=== PATIENT | male | born 1950 | race Caucasian/White ===

== ENCOUNTER 2022-02-14 11:18 | Inpatient (IN) | payer MEDICARE ==
[~2022-02-14] VITALS: Ht 172.7 cm; Wt 124.3 kg
[2022-02-14 11:29] VITALS: BP 116/88
[2022-02-14] MEDS ORDERED: SERTRALINE HYDR50 MG PO (11:43)
[2022-02-14] MEDS ORDERED: NEURONTIN300 MG PO (11:44)
[2022-02-14 11:58] LABS: BASO % 0.6 % (0.0-1.0); EOS # 0.1 10*3/uL (0.0-0.4); EOS % 2.1 % (1.0-4.0); HEMATOCRIT 44.8 % (42.0-52.0); LYMPH % 20.3 % (27.0-41.0); MEAN CORPUSCULAR HGB 30.9 pg (27.0-31.0); MEAN CORPUSCULAR HGB CONC 34.4 g/dl (33.0-37.0); MEAN PLATELET VOLUME 10.3 fl (9.6-12.3); MONO # 0.4 10*3/uL (0.1-1.0); MONO % 7.8 % (3.0-9.0); NEUT # 3.3 10*3/uL (2.3-7.9); PLATELET COUNT AUTOMATED 204 10*3/uL (130-400); RED BLOOD COUNT 4.98 10*6/uL (4.50-5.90); RED CELL DISTRI WIDTH 12.7 % (0-14.5); WHITE BLOOD COUNT 4.7 10*3/uL (4.8-10.8)
[2022-02-14 12:09] LABS: ACT PARTIAL THROMBO TIME 28.2 SECONDS (20.0-32.1)
[2022-02-14 12:12] LABS: ALKALINE PHOSPHATASE 93 U/L (45-117); BUN 15 mg/dl (7-24); CHLORIDE 110 mmol/L (98-107); CREATININE 0.92 mg/dL (0.70-1.30); SGOT/AST 19 IU/L (3-35); SGPT/ALT 25 U/L (12-78); SODIUM 139 mmol/L (136-145); TOTAL PROTEIN 7.6 gm/dL (6.4-8.2)
[2022-02-14 12:13] LABS: ETHYL ALCOHOL < 3.0 mg/dl (<3)
[2022-02-14 13:11] LABS: BILIRUBIN Negative (Negative); BLOOD Negative (Negative); CLARITY Turbid (Clear); COLOR Yellow (Yellow); GLUCOSE Negative (Negative); KETONE Negative (Negative); LEUKO ESTERASE Negative (Negative); NITRITE Negative (Negative); SPECIFIC GRAVITY 1.025 (1.001-1.030)
[2022-02-14 13:24] LABS: URINE AMPHETAMINES < 1000 (1000ng/ml); URINE BARBITURATES < 200 (200ng/ml); URINE BENZODIAZEPINES < 200 (200ng/ml); URINE CANNABINOIDS (THC) < 50 (50ng/ml); URINE COCAINE < 300 (300ng/ml); URINE METHADONE < 300 (300ng/ml); URINE OPIATES < 300 (300ng/ml)
[2022-02-14 13:33] LABS: URINE PHENCYCLIDINE < 25 (25ng/ml)
[2022-02-14 13:35] VITALS: BP 139/64
[2022-02-14 16:00] VITALS: BP 151/86
[2022-02-14 20:00] VITALS: BP 119/57
[2022-02-15] VITALS: BP 139/66
[2022-02-15 08:00] VITALS: BP 134/76
[2022-02-15 12:00] VITALS: BP 120/64
[2022-02-15 16:00] VITALS: BP 116/50
[2022-02-15 21:52] VITALS: BP 125/54
[2022-02-16] VITALS: BP 100/66
[2022-02-16 08:00] VITALS: BP 131/69
[2022-02-16 12:00] VITALS: BP 136/72
[2022-02-16 16:00] VITALS: BP 115/66
[2022-02-16 20:00] VITALS: BP 150/64
[2022-02-17] VITALS: BP 133/72
[2022-02-17 08:00] VITALS: BP 113/59
[2022-02-17] MEDS ORDERED: VITAMIN B-1100 M1 PO (09:01)
[2022-02-17] MEDS ORDERED: THERA TABLET400 MCG PO (09:01)
[2022-02-17] MEDS ORDERED: NATURE'S BLEND F1 MG PO (09:01)
== END 2022-02-17 09:35 | disposition home or self-care (01) | DRG 897 ==
LOC: ED 11:18 → 4E 13:00 → EDHOLD 13:00 → 4E 13:00
PROVIDERS: Emergency Medicine; ADMIT Family Medicine; ATTEND Family Medicine
DX: F11.13 Opioid abuse with withdrawal (principal); Z68.41 Body mass index [BMI] 40.0-44.9, adult; F41.9 Anxiety disorder, unspecified; M54.30 Sciatica, unspecified side; E83.41 Hypermagnesemia; F32.9 Major depressive disorder, single episode, unspecified; G47.00 Insomnia, unspecified; F32.A Depression, unspecified; G89.29 Other chronic pain; M54.9 Dorsalgia, unspecified; D72.819 Decreased white blood cell count, unspecified; R73.9 Hyperglycemia, unspecified; E66.01 Morbid (severe) obesity due to excess calories; E87.8 Other disorders of electrolyte and fluid balance, not elsewhere classified; Z88.6 Allergy status to analgesic agent; Z88.8 Allergy status to other drugs, medicaments and biological substances; Z87.891 Personal history of nicotine dependence; Z82.49 Family history of ischemic heart disease and other diseases of the circulatory system